=== PATIENT | female | born 1955 ===

== ENCOUNTER 2021-06-12 21:53 | Inpatient (IN) ==
[2021-06-12 23:08] LABS: Venous Bicarbonate HCO3 34.6 mmol/L (24-28)
[2021-06-12 23:18] LABS: Hematocrit 23 % (35-47); Hemoglobin 6.7 g/dL (12.0-16.0); Mean Corpuscular HGB Conc 29 g/dL (31-36); Mean Corpuscular Hemoglobin 19 pg (27-31); Mean Corpuscular Volume 66 fL (80-97); Red Blood Count 3.45 10^6 /uL (3.70-4.87); Red Cell Distribution Width 22 % (10-15); White Blood Count 3.4 10^3/uL (3.5-10.8)
[2021-06-12 23:19] LABS: ABS Lymphocytes 0.7 10^3/ul (1.0-4.8); ABS Monocytes 0.4 10^3/ul (0-0.8); ABS Neutrophils 2.2 10^3/ul (1.5-7.7); Eosinophil % 1.1 %; Lymphocyte % 21.1 %; Nucleated Red Blood Cells % 0.1
[2021-06-12 23:33] LABS: High Sens Troponin Baseline 8 pg/mL (<15)
[2021-06-12 23:37] LABS: ALT 9 U/L (7-52); AST 17 U/L (13-39); Acetaminophen < 15 mcg/mL; Albumin 3.2 g/dL (3.2-5.2); Albumin/Globulin Ratio 0.9 (1-3); Alcohol, S < 13 mg/dL (<13); Alkaline Phosphatase 90 U/L (35-149); Anion Gap 6 mmol/L (2-11); Blood Urea Nitrogen 19 mg/dL (6-24); CO2 Carbon Dioxide 37 mmol/L (22-32); Calcium 8.7 mg/dL (8.6-10.3); Chloride 98 mmol/L (101-111); Globulin 3.7 g/dL (2-4); Glucose 83 mg/dL (70-100); Magnesium 1.8 mg/dL (1.9-2.7); Sodium 141 mmol/L (135-145); Total Protein 6.9 g/dL (6.4-8.9); eGFR CKD-EPI 103.5 (>60)
[2021-06-12 23:38] LABS: Anisocytosis 1+; Hypochromasia 1+; Mean Platelet Volume 10.1 fL (7.4-10.4); Platelet Count 105 10^3/uL (150-450)
[2021-06-12 23:39] LABS: Stomatocytes 1+
[2021-06-12 23:40] LABS: Platelet Morphology Large
[2021-06-13 05:40] LABS: Urine Appearance Cloudy; Urine Bilirubin Negative (Negative); Urine Blood 1+ (Negative); Urine Color Yellow; Urine Glucose Negative (Negative); Urine Ketones Negative (Negative); Urine Nitrite Positive (Negative); Urine Protein 1+(30 mg/dL) (Negative); Urine Specific Gravity 1.017 (1.002-1.030); Urine Urobilinogen Positive (Negative)
[2021-06-13 05:44] LABS: Urine Bacteria 1+ (Absent); Urine Red Blood Cell 2+(6-10/hpf) (Absent); Urine Squamous Epithelial Cell Present (Absent); Urine White Blood Cell 2+(11-20/hpf) (Absent)
[2021-06-13 07:52] LABS: ABS Lymphocytes 0.7 10^3/ul (1.0-4.8); ABS Monocytes 0.5 10^3/ul (0-0.8); Eosinophil % 1.1 %; Hematocrit 24 % (35-47); Lymphocyte % 22.4 %; Mean Corpuscular HGB Conc 30 g/dL (31-36); Mean Corpuscular Hemoglobin 20 pg (27-31); Mean Corpuscular Volume 68 fL (80-97); Nucleated Red Blood Cells % 0.2; Red Blood Count 3.47 10^6 /uL (3.70-4.87); Red Cell Distribution Width 23 % (10-15); White Blood Count 3.2 10^3/uL (3.5-10.8)
[2021-06-13 08:18] LABS: Albumin 3.1 g/dL (3.2-5.2); Albumin/Globulin Ratio 0.9 (1-3); Calcium 8.6 mg/dL (8.6-10.3); Globulin 3.6 g/dL (2-4); HDL Cholesterol 33.4 mg/dL; Potassium 3.9 mmol/L (3.5-5.0); Total Protein 6.7 g/dL (6.4-8.9)
[2021-06-13 08:20] LABS: Mean Platelet Volume 10.7 fL (7.4-10.4); Platelet Count 111 10^3/uL (150-450)
[2021-06-13 08:28] LABS: TSH Ultra Thyroid Stim Horm 2.32 mcIU/mL (0.34-5.60)
[2021-06-13 08:36] LABS: Ferritin 6.6 ng/mL (11-307)
[2021-06-13] MEDS: cefTRIAXone 1 gm/50 mL D5W 1 GM/50 ML BAG IV SCH (08:37)
[2021-06-13 08:39] LABS: Folate 8.08 ng/mL (5.90-24.80)
[2021-06-13 12:05] LABS: Hematocrit 23 % (35-47); Hemoglobin 6.9 g/dL (12.0-16.0)
[2021-06-13] MEDS ORDERED: Cyanocobalamin INJ 1,000 MCG/ML VIAL 1 ML VIAL IM ONE (12:57)
[2021-06-14 06:10] LABS: Hematocrit 22 % (35-47); Hemoglobin 6.6 g/dL (12.0-16.0); Mean Corpuscular HGB Conc 30 g/dL (31-36); Mean Corpuscular Hemoglobin 20 pg (27-31); Mean Corpuscular Volume 68 fL (80-97); Red Blood Count 3.28 10^6 /uL (3.70-4.87); Red Cell Distribution Width 23 % (10-15); White Blood Count 3.1 10^3/uL (3.5-10.8)
[2021-06-14 06:29] LABS: ABS Lymphocytes 0.8 10^3/ul (1.0-4.8); ABS Monocytes 0.5 10^3/ul (0-0.8); ABS Neutrophils 1.7 10^3/ul (1.5-7.7); Eosinophil % 1.5 %; Lymphocyte % 25.5 %; Mean Platelet Volume 10.7 fL (7.4-10.4); Nucleated Red Blood Cells % 0.1
[2021-06-14 06:36] LABS: Albumin/Globulin Ratio 0.9 (1-3); Calcium 8.5 mg/dL (8.6-10.3); Globulin 3.2 g/dL (2-4); Potassium 4.4 mmol/L (3.5-5.0); Total Bilirubin 0.7 mg/dL (0.2-1.0); Total Protein 6.2 g/dL (6.4-8.9); eGFR CKD-EPI 101.7 (>60)
[2021-06-14 06:40] LABS: Platelet Count 150 10^3/uL (150-450)
[2021-06-14 06:41] LABS: Microcytosis 3+
[2021-06-14 06:42] LABS: Anisocytosis 2+; Hypochromasia 2+
[2021-06-14 06:43] LABS: Polychromasia 1+
[2021-06-14 06:45] LABS: Large Platelets Present
[2021-06-14] MEDS: cefTRIAXone 1 gm/50 mL D5W 1 GM/50 ML BAG IV SCH (09:29)
[2021-06-14 14:27] LABS: Intrinsic Factor Blocking AB Indeterminate (Negative)
[2021-06-15 05:56] LABS: Hematocrit 24 % (35-47); Hemoglobin 7.3 g/dL (12.0-16.0); Mean Corpuscular HGB Conc 30 g/dL (31-36); Mean Corpuscular Hemoglobin 21 pg (27-31); Mean Corpuscular Volume 69 fL (80-97); Red Blood Count 3.55 10^6 /uL (3.70-4.87); Red Cell Distribution Width 24 % (10-15); White Blood Count 4.6 10^3/uL (3.5-10.8)
[2021-06-15 05:57] LABS: ABS Basophils 0.1 10^3/ul (0-0.2); ABS Eosinophils 0.1 10^3/ul (0-0.6); ABS Lymphocytes 0.9 10^3/ul (1.0-4.8); ABS Monocytes 0.9 10^3/ul (0-0.8); ABS Neutrophils 2.6 10^3/ul (1.5-7.7); Eosinophil % 1.3 %; Nucleated Red Blood Cells % 0.2
[2021-06-15 06:18] LABS: Albumin 3.1 g/dL (3.2-5.2); Calcium 8.8 mg/dL (8.6-10.3); Potassium 4.3 mmol/L (3.5-5.0)
[2021-06-15 06:24] LABS: Albumin/Globulin Ratio 0.9 (1-3); Globulin 3.5 g/dL (2-4); Total Protein 6.6 g/dL (6.4-8.9); eGFR CKD-EPI 96.3 (>60)
[2021-06-15 07:05] LABS: Mean Platelet Volume 9.5 fL (7.4-10.4); Platelet Count 114 10^3/uL (150-450)
[2021-06-15 07:06] LABS: Anisocytosis 2+
[2021-06-15 07:08] LABS: Polychromasia 1+
[2021-06-15 07:09] LABS: Platelet Morphology Large
[2021-06-15] MEDS: cefTRIAXone 1 gm/50 mL D5W 1 GM/50 ML BAG IV SCH (11:21)
[2021-06-15] MEDS ORDERED: Saline NASAL SPRAY 0.65% BTL BOTH NARES PRN (17:41)
[2021-06-15] MEDS: Fluticasone NASAL SPRAY 50MCG 16 gm SPRAY BTL BOTH NARES SCH (20:12)
[2021-06-16] MEDS ORDERED: Petroleum Jelly 1.75 Oz (small jar) TOPICAL PRN (07:50)
[2021-06-16 08:05] LABS: Hematocrit 25 % (35-47); Hemoglobin 7.6 g/dL (12.0-16.0); Mean Corpuscular HGB Conc 30 g/dL (31-36); Mean Corpuscular Hemoglobin 21 pg (27-31); Mean Corpuscular Volume 70 fL (80-97); Red Cell Distribution Width 24 % (10-15); White Blood Count 4.2 10^3/uL (3.5-10.8)
[2021-06-16] MEDS: Fluticasone NASAL SPRAY 50MCG 16 gm SPRAY BTL BOTH NARES SCH (08:19)
[2021-06-16 08:45] LABS: Albumin 3.1 g/dL (3.2-5.2); Albumin/Globulin Ratio 0.9 (1-3); Calcium 8.7 mg/dL (8.6-10.3); Globulin 3.5 g/dL (2-4); Total Bilirubin 0.7 mg/dL (0.2-1.0); Total Protein 6.6 g/dL (6.4-8.9); eGFR CKD-EPI 86.9 (>60)
[2021-06-16 09:25] LABS: ABS Basophils 0.1 10^3/ul (0-0.2); ABS Eosinophils 0.1 10^3/ul (0-0.6); ABS Lymphocytes 0.9 10^3/ul (1.0-4.8); ABS Monocytes 0.7 10^3/ul (0-0.8); ABS Neutrophils 2.5 10^3/ul (1.5-7.7); Eosinophil % 2.2 %; Lymphocyte % 20.7 %; Mean Platelet Volume 9.7 fL (7.4-10.4); Nucleated Red Blood Cells % 0.1; Platelet Count 108 10^3/uL (150-450)
[2021-06-16 10:51] VITALS: BP 103/49
== END 2021-06-16 10:59 | disposition swing bed (61) | DRG 760 ==
LOC: ED 21:53 → SUATTDRO 06-13 01:21 → EDHOLD 06-13 01:21 → MEDTELE 06-13 09:56
PROVIDERS: ADMIT Internal Medicine; ATTEND Student in an Organized Health Care Education/Training Program

== ENCOUNTER 2023-11-01 22:30 | Inpatient (IN) ==
[2023-11-01 22:54] LABS: Venous Bicarbonate HCO3 29.1 mmol/L (24-28)
[2023-11-01 23:21] LABS: Hemoglobin 13.1 g/dL (11.5-14.3); Mean Corpuscular Hemoglobin 27.7 pg (27-33); Mean Corpuscular Hgb Conc 31.9 g/dL (31-36); Mean Corpuscular Volume 86.8 fL (80-97); Red Blood Count 4.72 10^6/uL (3.63-4.92); Red Cell Distribution Width 16.2 % (12-17); White Blood Count 16.9 10^3/uL (3.8-11.8)
[2023-11-01] MEDS: methylPREDNISolone SOD SUCC 125 mg 2 ML VIAL IV ONE (23:46)
[2023-11-01] MEDS: cefTRIAXone 2 gm/50 mL D5W 2 GM/50 ML BAG IV SCH (23:46)
[2023-11-02] MEDS: Azithromycin 500 mg/250 ml NS 500 MG/250 ML BAG IVPB SCH (00:10)
[2023-11-02 00:14] LABS: Potassium 4.2 mmol/L (3.5-5.0)
[2023-11-02 00:15] LABS: Albumin 3.4 g/dL (3.2-5.2); Albumin/Globulin Ratio 0.9 (1-3); Calcium 8.4 mg/dL (8.6-10.3); Creatinine, Serum 2.12 mg/dL (0.51-0.95); Globulin 3.7 g/dL (2-4); Total Bilirubin 3.4 mg/dL (0.2-1.0); Total Protein 7.1 g/dL (6.4-8.9); eGFR CKD-EPI 24.9 (>60)
[2023-11-02] MEDS: Lactated Ringers 1000 ml BAG 1,000 ML IV ONE ×2 (00:18→06:30)
[2023-11-02 00:26] LABS: High Sensitivity Troponin 1 Hr 1081 pg/mL (<15)
[2023-11-02 00:43] LABS: Mean Platelet Volume 13.3 fL (7.5-11.2); Platelet Count 49 10^3/uL (150-450)
[2023-11-02] MEDS ORDERED: KETAMINE HCL 10 MG/ML 20 ml VIAL (200 MG) ONE (01:12)
[2023-11-02] MEDS ORDERED: Rocuronium 50 mg VIAL 10 mg/ml 5 ml VIAL (50 mg) ONE (01:12)
[2023-11-02] MEDS ORDERED: Benzocaine/Butamben/Tetracain (CETACAINE - SINGLE USE) 5 gm TOPICAL ONE (01:12)
[2023-11-02 01:13] LABS: PO2 Arterial 90 mmHg (80-100)
[2023-11-02 01:14] LABS: PCO2 Arterial 92 mmHg (35-45)
[2023-11-02] MEDS: Norepinephrine 4 MG/250mL D5W 4,000 MCG/250 ML BAG IV SCH (01:15)
[2023-11-02] MEDS: Propofol 10 mg/ml 100 ML BTL 1,000 MG/100 ML BTL IV SCH (01:30)
[2023-11-02 01:52] LABS: ABS Lymphocytes 0.3 10^3/uL (1.0-4.8); ABS Monocytes 1.4 10^3/uL (0.0-0.9); ABS Neutrophils 15.2 10^3/uL (1.5-7.6); ABS Nucleated RBC 0.02 10^3/ul; Lymphocyte % 1.9 %; Nucleated Red Blood Cells % 0.1 %/100WBC (0.0-0.8)
[2023-11-02 02:02] LABS: C Reactive Protein 187.14 mg/L (<8.01); Magnesium 1.6 mg/dL (1.9-2.7)
[2023-11-02] MEDS: fentaNYL 100 mcg/2 ml 50 MCG/ML VIAL IV SLOW PU PRN (02:04)
[2023-11-02] MEDS: Sulfur Hexaflouride MICROSPHR 25 MG VIAL IV ONE (02:56)
[2023-11-02] MEDS: Heparin 5000 UNITS/ML 1 mL VIAL IV SCH (03:05)
[2023-11-02] MEDS: Heparin 5000 UNITS/ML 1 mL VIAL ONE (03:07)
[2023-11-02] MEDS: Heparin DRIP 25,000 UNITS BAG 25,000 UNITS/250 ML BAG IV ONE (03:08)
[2023-11-02] MEDS: Propofol 10 mg/ml 100 ML BTL 1,000 MG/100 ML BTL ONE (03:08)
[2023-11-02] MEDS: Heparin DRIP 25,000 UNITS BAG 25,000 UNITS/250 ML BAG IV SCH (03:10)
[2023-11-02] MEDS: Rocuronium 50 mg VIAL 10 mg/ml 5 ml VIAL (50 mg) ONE ×3 (03:40)
[2023-11-02] MEDS: Norepinephrine 4 MG/250mL D5W 4,000 MCG/250 ML BAG IV ONE (03:55)
[2023-11-02] MEDS: fentaNYL 100 mcg/2 ml 50 MCG/ML VIAL ONE (03:56)
[2023-11-02 03:57] LABS: Resp Rate 22
[2023-11-02 04:00] LABS: PCO2 Arterial 46 mmHg (35-45); PO2 Arterial 106 mmHg (80-100)
[2023-11-02] MEDS: Phenylephrine 40 mcg/mL 10mL (400mcg) SYRINGE ONE ×2 (04:01→06:00)
[2023-11-02 04:23] LABS: Hematocrit 41.6 % (35-45); Hemoglobin 13.3 g/dL (11.5-14.3); Mean Corpuscular Hemoglobin 27.6 pg (27-33); Mean Corpuscular Volume 86.2 fL (80-97); Red Blood Count 4.82 10^6/uL (3.63-4.92); Red Cell Distribution Width 16.7 % (12-17); White Blood Count 17.6 10^3/uL (3.8-11.8)
[2023-11-02 04:27] LABS: High Sensitivity Troponin 3 Hr 1569 pg/mL (<15)
[2023-11-02] MEDS: Furosemide 40 mg/4 ml IV VIAL IV SLOW PU ONE (05:05)
[2023-11-02 05:12] LABS: HDL Cholesterol 32.2 mg/dL
[2023-11-02 05:17] LABS: ABS Lymphocytes 0.5 10^3/uL (1.0-4.8); ABS Monocytes 1.1 10^3/uL (0.0-0.9); ABS Neutrophils 15.8 10^3/uL (1.5-7.6); ABS Nucleated RBC 0.01 10^3/ul; Lymphocyte % 2.7 %; Nucleated Red Blood Cells % 0.1 %/100WBC (0.0-0.8); Platelet Count 56 10^3/uL (150-450)
[2023-11-02] MEDS: Chlorhexidine MOUTHWASH 0.12% 15 ML UDC TOPICAL SCH (05:26)
[2023-11-02 05:39] LABS: TSH Ultra Thyroid Stim Horm 0.67 mcIU/mL (0.34-5.60)
[2023-11-02 05:39] LABS: Calcium 8.2 mg/dL (8.6-10.3); Creatinine, Serum 2.17 mg/dL (0.51-0.95); Magnesium 1.6 mg/dL (1.9-2.7); eGFR CKD-EPI 24.2 (>60)
[2023-11-02 05:41] LABS: Free T4 1.09 ng/dL (0.61-1.12)
[2023-11-02 05:53] LABS: Potassium 4.5 mmol/L (3.5-5.0)
[2023-11-02] MEDS: Magnesium Sulfate 2 gm BAG 2 GM/50 ML BAG IVPB ONE (06:29)
[2023-11-02] MEDS: Levothyroxine 100 MCG/5 ML VIAL IV SCH (08:01)
[2023-11-02] MEDS: DOXYcycline 100 MG in NS 0.9% 250 ml 250 ML IVPB SCH (08:01)
[2023-11-02] MEDS: Pantoprazole VIAL 40 MG VIAL IV SCH (08:03)
[2023-11-02] MEDS: Albumin Human 25% 25 GM/100 ML BTL IV ONE (09:15)
[2023-11-02] MEDS ORDERED: Sulfur Hexaflouride MICROSPHR 25 MG VIAL ONE (09:48)
[2023-11-02] MEDS: Furosemide 40 mg/4 ml IV VIAL IV ONE (11:55)
[2023-11-02] MEDS: Albumin Human 5% 12.5 GM/250 ML BTL IV ONE (17:06)
[2023-11-03] MEDS: Heparin 5000 UNITS/ML 1 mL VIAL SUBCUT SCH (06:17)
[2023-11-03 06:30] LABS: Urine Appearance Turbid; Urine Bilirubin Negative (Negative); Urine Blood 3+ (Negative); Urine Color Yellow; Urine Glucose Negative (Negative); Urine Ketones Negative (Negative); Urine Nitrite Negative (Negative); Urine Protein 2+ (>=100 mg/dL) (Negative); Urine Specific Gravity 1.012 (1.002-1.030); Urine Urobilinogen Negative (Negative)
[2023-11-03 06:59] LABS: Albumin 2.9 g/dL (3.2-5.2); Albumin/Globulin Ratio 0.9 (1-3); Creatinine, Serum 2.99 mg/dL (0.51-0.95); Globulin 3.1 g/dL (2-4); Potassium 4.4 mmol/L (3.5-5.0); Total Bilirubin 1.7 mg/dL (0.2-1.0); eGFR CKD-EPI 16.5 (>60)
[2023-11-03 07:01] LABS: Urine Bacteria 1+ /HPF (Absent); Urine Red Blood Cell 2+(6-10/hpf) /HPF (0-Trace); Urine Renal Epithelial Cells Present /HPF (Absent); Urine Squamous Epithelial Cell Present /HPF (Absent); Urine White Blood Cell 3+(>20/hpf) /HPF (0-Trace)
[2023-11-03 07:21] LABS: Hematocrit 39.4 % (35-45); Hemoglobin 13.1 g/dL (11.5-14.3); Mean Corpuscular Hemoglobin 27.9 pg (27-33); Mean Corpuscular Hgb Conc 33.4 g/dL (31-36); Mean Corpuscular Volume 83.6 fL (80-97); Red Blood Count 4.71 10^6/uL (3.63-4.92); White Blood Count 17.3 10^3/uL (3.8-11.8)
[2023-11-03 09:24] LABS: ABS Basophils 0.1 10^3/uL (0.0-0.1); ABS Eosinophils 0.1 10^3/uL (0.0-0.5); ABS Lymphocytes 1.2 10^3/uL (1.0-4.8); ABS Monocytes 2.1 10^3/uL (0.0-0.9); ABS Neutrophils 13.9 10^3/uL (1.5-7.6); ABS Nucleated RBC 0.01 10^3/ul; Eosinophil % 0.4 %; Lymphocyte % 6.8 %; Nucleated Red Blood Cells % 0.1 %/100WBC (0.0-0.8); Platelet Count 66 10^3/uL (150-450)
[2023-11-03] MEDS ORDERED: Vancomycin per Pharmacy 1 EA NOTE FOLLOW UP SCH (12:00)
[2023-11-03] MEDS: Vancomycin 2,000 MG in NS 0.9% 500 ml BAG 500 ML IVPB ONE (12:34)
[2023-11-03 13:26] LABS: Urine Osmo 289 mOsm/kg (150-1150)
[2023-11-03 22:56] LABS: PCO2 Arterial 36 mmHg (35-45); PO2 Arterial 73 mmHg (80-100)
[2023-11-04] MEDS: Albumin Human 5% 25 GM/500 ML BTL IV ONE (00:30)
[2023-11-04 01:48] LABS: Calcium 8.1 mg/dL (8.6-10.3); Creatinine, Serum 3.24 mg/dL (0.51-0.95); Potassium 4.1 mmol/L (3.5-5.0)
[2023-11-04 05:43] LABS: Albumin 2.8 g/dL (3.2-5.2); Calcium 7.9 mg/dL (8.6-10.3); Creatinine, Serum 3.26 mg/dL (0.51-0.95); Globulin 2.8 g/dL (2-4); Potassium 4.2 mmol/L (3.5-5.0); Total Bilirubin 1.4 mg/dL (0.2-1.0); Total Protein 5.6 g/dL (6.4-8.9); Vancomycin Random 11.8 mcg/mL; eGFR CKD-EPI 14.9 (>60)
[2023-11-04 07:05] LABS: ABS Basophils 0.1 10^3/uL (0.0-0.1); ABS Eosinophils 0.1 10^3/uL (0.0-0.5); ABS Lymphocytes 1.2 10^3/uL (1.0-4.8); ABS Monocytes 1.6 10^3/uL (0.0-0.9); ABS Neutrophils 10.1 10^3/uL (1.5-7.6); Eosinophil % 0.5 %; Hemoglobin 12.5 g/dL (11.5-14.3); Lymphocyte % 8.9 %; Mean Corpuscular Hemoglobin 27.7 pg (27-33); Mean Corpuscular Hgb Conc 32.9 g/dL (31-36); Mean Corpuscular Volume 84.1 fL (80-97); Platelet Count 68 10^3/uL (150-450); Red Blood Count 4.52 10^6/uL (3.63-4.92); Red Cell Distribution Width 16.8 % (12-17)
[2023-11-04] MEDS: Vancomycin Random Level NOTE FOLLOW UP ONE (08:37)
[2023-11-04] MEDS: Vancomycin 2,000 MG in NS 0.9% 500 ml BAG 500 ML IVPB ONE (09:37)
[2023-11-05 05:23] LABS: ABS Basophils 0.1 10^3/uL (0.0-0.1); ABS Eosinophils 0.1 10^3/uL (0.0-0.5); ABS Lymphocytes 1.5 10^3/uL (1.0-4.8); ABS Monocytes 1.6 10^3/uL (0.0-0.9); ABS Neutrophils 6.5 10^3/uL (1.5-7.6); ABS Nucleated RBC 0.01 10^3/ul; Eosinophil % 1.4 %; Hemoglobin 12.7 g/dL (11.5-14.3); Mean Corpuscular Hemoglobin 27.3 pg (27-33); Mean Corpuscular Hgb Conc 32.5 g/dL (31-36); Mean Corpuscular Volume 84.2 fL (80-97); Mean Platelet Volume 12.4 fL (7.5-11.2); Nucleated Red Blood Cells % 0.2 %/100WBC (0.0-0.8); Platelet Count 71 10^3/uL (150-450); Red Blood Count 4.63 10^6/uL (3.63-4.92); Red Cell Distribution Width 16.6 % (12-17); White Blood Count 9.8 10^3/uL (3.8-11.8)
[2023-11-05 06:47] LABS: Albumin 2.7 g/dL (3.2-5.2); Albumin/Globulin Ratio 0.9 (1-3); Calcium 7.7 mg/dL (8.6-10.3); Creatinine, Serum 3.57 mg/dL (0.51-0.95); Potassium 3.9 mmol/L (3.5-5.0); Total Bilirubin 1.1 mg/dL (0.2-1.0); Total Protein 5.7 g/dL (6.4-8.9); eGFR CKD-EPI 13.3 (>60)
[2023-11-05] MEDS: Vancomycin Random Level NOTE FOLLOW UP ONE (08:41)
[2023-11-05] MEDS: Senna TAB 8.6 mg TAB NG TUBE SCH (09:58)
[2023-11-05] MEDS: Polyethylene Glycol 3350 17 GM PACKET NG TUBE SCH (09:58)
[2023-11-05 10:28] LABS: Urine Creatinine Concentration 83.78 mg/dL (20.00-320.00)
[2023-11-05 14:29] LABS: Anaplasma phagocytophilum Negative (Negative); B. miyamotoi PCR, B Negative (Negative); Babesia divergens/MO-1 Negative (Negative); Babesia ducani Negative (Negative); Ehrlichia chaffeensis Negative (Negative); Ehrlichia ewingii/canis Negative (Negative); Ehrlichia muris eauclairensis Negative (Negative)
[2023-11-05] MEDS ORDERED: Nicotine GUM 4MG FRUIT FLAVOR PO PRN (17:52)
[2023-11-05] MEDS ORDERED: Nicotine PATCH 21 MG/24 HR PATCH TRANSDERM SCH (18:00)
[2023-11-05 20:20] LABS: IgG Immunoblot Negative (Negative); IgM Immunoblot Negative (Negative)
[2023-11-05] MEDS: Acetylcysteine ORAL SOL 200 mg/ml 30 ml VIAL ONE (20:52)
[2023-11-06 05:57] LABS: ABS Basophils 0.1 10^3/uL (0.0-0.1); ABS Eosinophils 0.2 10^3/uL (0.0-0.5); ABS Lymphocytes 1.2 10^3/uL (1.0-4.8); ABS Monocytes 2.2 10^3/uL (0.0-0.9); ABS Neutrophils 6.8 10^3/uL (1.5-7.6); ABS Nucleated RBC 0.01 10^3/ul; Eosinophil % 1.6 %; Giant Platelets Present; Hematocrit 39.2 % (35-45); Hemoglobin 12.8 g/dL (11.5-14.3); Lymphocyte % 11.7 %; Mean Corpuscular Hemoglobin 27.6 pg (27-33); Mean Corpuscular Hgb Conc 32.7 g/dL (31-36); Mean Corpuscular Volume 84.4 fL (80-97); Mean Platelet Volume 12.8 fL (7.5-11.2); Nucleated Red Blood Cells % 0.1 %/100WBC (0.0-0.8); Platelet Count 92 10^3/uL (150-450); Red Blood Count 4.64 10^6/uL (3.63-4.92); White Blood Count 10.5 10^3/uL (3.8-11.8)
[2023-11-06 06:13] LABS: Phosphorus 4.7 mg/dL (2.5-5.0)
[2023-11-06 06:16] LABS: Calcium 7.8 mg/dL (8.6-10.3); Creatinine, Serum 3.38 mg/dL (0.51-0.95); Magnesium 1.9 mg/dL (1.9-2.7); Potassium 3.8 mmol/L (3.5-5.0); Vancomycin Random 15.9 mcg/mL; eGFR CKD-EPI 14.2 (>60)
[2023-11-06] MEDS: Vancomycin Random Level NOTE FOLLOW UP ONE (07:41)
[2023-11-06] MEDS: Furosemide 40 mg/4 ml IV VIAL IV SLOW PU ONE (09:54)
[2023-11-06] MEDS: Furosemide 40 mg/4 ml IV VIAL IV ONE (15:53)
[2023-11-07 04:23] LABS: Hematocrit 37.8 % (35-45); Hemoglobin 12.4 g/dL (11.5-14.3); Mean Corpuscular Hemoglobin 27.5 pg (27-33); Mean Corpuscular Hgb Conc 32.9 g/dL (31-36); Mean Corpuscular Volume 83.5 fL (80-97); Red Blood Count 4.53 10^6/uL (3.63-4.92); Red Cell Distribution Width 16.9 % (12-17); White Blood Count 8.7 10^3/uL (3.8-11.8)
[2023-11-07 04:52] LABS: Calcium 8.5 mg/dL (8.6-10.3); Creatinine, Serum 3.6 mg/dL (0.51-0.95); Magnesium 1.9 mg/dL (1.9-2.7); Potassium 3.8 mmol/L (3.5-5.0); eGFR CKD-EPI 13.2 (>60)
[2023-11-07 05:02] LABS: ABS Eosinophils 0.1 10^3/uL (0.0-0.5); ABS Lymphocytes 0.9 10^3/uL (1.0-4.8); ABS Monocytes 1.5 10^3/uL (0.0-0.9); ABS Neutrophils 6.2 10^3/uL (1.5-7.6); ABS Nucleated RBC 0.01 10^3/ul; Giant Platelets Present; Lymphocyte % 10.6 %; Mean Platelet Volume 11.8 fL (7.5-11.2); Nucleated Red Blood Cells % 0.1 %/100WBC (0.0-0.8); Platelet Count 99 10^3/uL (150-450)
[2023-11-07 07:51] LABS: Albumin 2.7 g/dL (3.2-5.2); Albumin/Globulin Ratio 0.8 (1-3); Direct Bilirubin 0.5 mg/dL (0.03-0.18); Globulin 3.2 g/dL (2-4); Indirect Bilirubin 0.4 mg/dL (0.3-1.0); Total Bilirubin 0.9 mg/dL (0.2-1.0); Total Protein 5.9 g/dL (6.4-8.9)
[2023-11-07 21:13] LABS: Malaria Detection PCR Negative (Negative)
[2023-11-08 05:02] LABS: Hematocrit 37.6 % (35-45); Hemoglobin 12.3 g/dL (11.5-14.3); Mean Corpuscular Hemoglobin 27.3 pg (27-33); Mean Corpuscular Hgb Conc 32.6 g/dL (31-36); Mean Corpuscular Volume 83.7 fL (80-97); Red Blood Count 4.49 10^6/uL (3.63-4.92); Red Cell Distribution Width 16.6 % (12-17); White Blood Count 7.5 10^3/uL (3.8-11.8)
[2023-11-08 05:33] LABS: ABS Basophils 0.1 10^3/uL (0.0-0.1); ABS Eosinophils 0.1 10^3/uL (0.0-0.5); ABS Lymphocytes 0.9 10^3/uL (1.0-4.8); ABS Monocytes 1.3 10^3/uL (0.0-0.9); ABS Neutrophils 5.1 10^3/uL (1.5-7.6); ABS Nucleated RBC 0.01 10^3/ul; Eosinophil % 1.5 %; Lymphocyte % 12.4 %; Mean Platelet Volume 11.8 fL (7.5-11.2); Nucleated Red Blood Cells % 0.1 %/100WBC (0.0-0.8); Platelet Count 125 10^3/uL (150-450)
[2023-11-08 05:52] LABS: Calcium 8.3 mg/dL (8.6-10.3); Creatinine, Serum 3.16 mg/dL (0.51-0.95); Magnesium 1.7 mg/dL (1.9-2.7); Potassium 3.6 mmol/L (3.5-5.0); eGFR CKD-EPI 15.4 (>60)
[2023-11-08] MEDS: Acetaminophen IV 1 GM/100ML 1,000 MG/100 ML BAG IV PRN (08:43)
[2023-11-08] MEDS: Magnesium Sulfate 2 gm BAG 2 GM/50 ML BAG IVPB ONE (08:43)
[2023-11-08 18:45] LABS: Magnesium 1.9 mg/dL (1.9-2.7); Potassium 3.7 mmol/L (3.5-5.0)
[2023-11-09 06:05] LABS: Hematocrit 37.3 % (35-45); Hemoglobin 12.1 g/dL (11.5-14.3); Mean Corpuscular Hemoglobin 27.6 pg (27-33); Mean Corpuscular Hgb Conc 32.6 g/dL (31-36); Mean Corpuscular Volume 84.8 fL (80-97); Red Cell Distribution Width 16.9 % (12-17); White Blood Count 5.9 10^3/uL (3.8-11.8)
[2023-11-09 06:25] LABS: Calcium 8.5 mg/dL (8.6-10.3); Creatinine, Serum 2.54 mg/dL (0.51-0.95); Magnesium 1.9 mg/dL (1.9-2.7); Potassium 3.9 mmol/L (3.5-5.0); eGFR CKD-EPI 20.1 (>60)
[2023-11-09 07:16] LABS: ABS Eosinophils 0.1 10^3/uL (0.0-0.5); ABS Lymphocytes 0.8 10^3/uL (1.0-4.8); ABS Monocytes 0.9 10^3/uL (0.0-0.9); ABS Neutrophils 4.1 10^3/uL (1.5-7.6); Eosinophil % 2.1 %; Giant Platelets Present; Large Platelets Present; Lymphocyte % 12.9 %; Nucleated Red Blood Cells % 0.1 %/100WBC (0.0-0.8); Platelet Count 118 10^3/uL (150-450)
[2023-11-10 08:57] LABS: ABS Basophils 0.1 10^3/uL (0.0-0.1); ABS Eosinophils 0.1 10^3/uL (0.0-0.5); ABS Lymphocytes 0.6 10^3/uL (1.0-4.8); ABS Neutrophils 4.7 10^3/uL (1.5-7.6); Eosinophil % 0.9 %; Giant Platelets Present; Hematocrit 40.2 % (35-45); Hemoglobin 12.7 g/dL (11.5-14.3); Lymphocyte % 9.8 %; Mean Corpuscular Hemoglobin 27.2 pg (27-33); Mean Corpuscular Hgb Conc 31.5 g/dL (31-36); Mean Corpuscular Volume 86.3 fL (80-97); Mean Platelet Volume 11.6 fL (7.5-11.2); Nucleated Red Blood Cells % 0.1 %/100WBC (0.0-0.8); Platelet Count 134 10^3/uL (150-450); Red Blood Count 4.65 10^6/uL (3.63-4.92); Red Cell Distribution Width 17.2 % (12-17); White Blood Count 6.4 10^3/uL (3.8-11.8)
[2023-11-10 09:20] LABS: Calcium 8.8 mg/dL (8.6-10.3); Creatinine, Serum 2.37 mg/dL (0.51-0.95); Magnesium 1.9 mg/dL (1.9-2.7); Potassium 4.2 mmol/L (3.5-5.0); eGFR CKD-EPI 21.8 (>60)
[2023-11-10] MEDS: Furosemide 20 mg/2 ml IV VIAL IV SLOW PU ONE (13:26)
[2023-11-10] MEDS: Dextrose 50% Syringe 50 ml 25 GM/50 ML SYRINGE IV PUSH PRN (15:15)
[2023-11-10] MEDS ORDERED: Vancomycin 1,000 MG in NS 0.9% 250 ml 250 ML IVPB ONE (16:46)
[2023-11-10] MEDS ORDERED: Vancomycin per Pharmacy 1 EA NOTE FOLLOW UP SCH (17:00)
[2023-11-10] MEDS ORDERED: Zosyn per Pharmacy NOTE FOLLOW UP SCH (17:00)
[2023-11-10 17:26] LABS: ABS Lymphocytes 0.7 10^3/uL (1.0-4.8); ABS Monocytes 0.9 10^3/uL (0.0-0.9); ABS Neutrophils 5.2 10^3/uL (1.5-7.6); ABS Nucleated RBC 0.01 10^3/ul; Eosinophil % 0.4 %; Giant Platelets Present; Hematocrit 42.4 % (35-45); Hemoglobin 12.9 g/dL (11.5-14.3); Lymphocyte % 9.9 %; Mean Corpuscular Hemoglobin 26.6 pg (27-33); Mean Corpuscular Hgb Conc 30.4 g/dL (31-36); Mean Corpuscular Volume 87.7 fL (80-97); Nucleated Red Blood Cells % 0.1 %/100WBC (0.0-0.8); Platelet Count 139 10^3/uL (150-450); Red Blood Count 4.84 10^6/uL (3.63-4.92); Red Cell Distribution Width 17.6 % (12-17); White Blood Count 6.8 10^3/uL (3.8-11.8)
[2023-11-10] MEDS: Norepinephrine 4 MG/250mL D5W 4,000 MCG/250 ML BAG IV SCH (17:45)
[2023-11-10 17:49] LABS: Albumin 2.9 g/dL (3.2-5.2); Albumin/Globulin Ratio 0.8 (1-3); Creatinine, Serum 2.34 mg/dL (0.51-0.95); Globulin 3.7 g/dL (2-4); Total Bilirubin 0.8 mg/dL (0.2-1.0); Total Protein 6.6 g/dL (6.4-8.9); eGFR CKD-EPI 22.1 (>60)
[2023-11-10] MEDS: Propofol 10 mg/ml 100 ML BTL 1,000 MG/100 ML BTL IV SCH (18:00)
[2023-11-10] MEDS: fentaNYL INFUSION 50 mcg/mL VL 2,500 MCG/50 ML VIAL IV SCH (18:43)
[2023-11-10] MEDS: Norepinephrine 4 MG/250mL D5W 4,000 MCG/250 ML BAG IV ONE (18:46)
[2023-11-10] MEDS: Succinylcholine 200 mg VIAL 20 mg/ml 10 ml VIAL (200 mg) ONE (18:48)
[2023-11-10] MEDS: Phenylephrine 40 mcg/mL 10mL (400mcg) SYRINGE IV PUSH PRN (18:48)
[2023-11-10] MEDS: Propofol 10 mg/ml 100 ML BTL 1,000 MG/100 ML BTL ONE (18:48)
[2023-11-10] MEDS: Phenylephrine 40 mcg/mL 10mL (400mcg) SYRINGE ONE (18:49)
[2023-11-10] MEDS: EPINEPHrine SYR 0.1MG/ML 10 ml SYRINGE IV ONE ×2 (18:52→19:43)
[2023-11-10] MEDS: fentaNYL 100 mcg/2 ml 50 MCG/ML VIAL IV SLOW PU PRN (19:00)
[2023-11-10] MEDS: Vancomycin 2,000 MG in NS 0.9% 500 ml BAG 500 ML IVPB ONE (19:09)
[2023-11-10] MEDS: Piperacillin/Tazobac 3.375 BAG 3.375 GM/100 ML BAG IV ONE (19:10)
[2023-11-10] MEDS: Dextrose 50% Syringe 50 ml 25 GM/50 ML SYRINGE ONE (19:43)
[2023-11-10] MEDS: fentaNYL 100 mcg/2 ml 50 MCG/ML VIAL ONE (19:43)
[2023-11-10] MEDS ORDERED: Heparin 5000 UNITS/ML 1 mL VIAL IV PRN (20:00)
[2023-11-10 20:09] LABS: PCO2 Arterial 52 mmHg (35-45); PO2 Arterial 86 mmHg (80-100)
[2023-11-10] MEDS: Heparin DRIP 25,000 UNITS BAG 25,000 UNITS/250 ML BAG IV SCH (20:40)
[2023-11-10] MEDS ORDERED: Enoxaparin 40 MG/0.4 ML SYR SUBCUT SCH (21:00)
[2023-11-10] MEDS ORDERED: Famotidine IV 10 MG/ML 2 ml VIAL (20 mg) IV SLOW PU SCH (21:00)
[2023-11-10] MEDS: Chlorhexidine MOUTHWASH 0.12% 15 ML UDC TOPICAL SCH (22:49)
[2023-11-10] MEDS: ZOSYN 3.375 GM Q12H per EXTENDED INFUSION IV SCH (22:49)
[2023-11-10 22:59] LABS: High Sensitivity Troponin 1 Hr 64 pg/mL (<15)
[2023-11-10] MEDS ORDERED: ZOSYN 3.375 GM Q8H per EXTENDED INFUSION IV SCH (23:00)
[2023-11-11] MEDS ORDERED: ZOSYN 3.375 GM Q8H per EXTENDED INFUSION IV SCH
[2023-11-11 00:41] LABS: PCO2 Arterial 44 mmHg (35-45); PO2 Arterial 84 mmHg (80-100)
[2023-11-11] MEDS ORDERED: Atropine 0.1 MG/ML 10 ml SYR (1 mg) IV PUSH PRN (03:00)
[2023-11-11 03:01] LABS: HDL Cholesterol 21.3 mg/dL
[2023-11-11] MEDS: Nystatin TOP POWDER 15 GM BTL TOPICAL SCH (04:13)
[2023-11-11] MEDS: Levothyroxine 100 MCG/5 ML VIAL IV SCH (05:55)
[2023-11-11 06:02] LABS: Hematocrit 41.7 % (35-45); Hemoglobin 13.3 g/dL (11.5-14.3); Mean Corpuscular Hemoglobin 27.2 pg (27-33); Mean Corpuscular Hgb Conc 31.9 g/dL (31-36); Mean Corpuscular Volume 85.2 fL (80-97); Platelet Count 171 10^3/uL (150-450); Red Cell Distribution Width 16.7 % (12-17); White Blood Count 11.3 10^3/uL (3.8-11.8)
[2023-11-11 06:07] LABS: ABS Basophils 0.1 10^3/uL (0.0-0.1); ABS Eosinophils 0.2 10^3/uL (0.0-0.5); ABS Lymphocytes 1.1 10^3/uL (1.0-4.8); ABS Monocytes 1.7 10^3/uL (0.0-0.9); ABS Neutrophils 8.3 10^3/uL (1.5-7.6); ABS Nucleated RBC 0.01 10^3/ul; Eosinophil % 1.7 %; Lymphocyte % 9.6 %; Nucleated Red Blood Cells % 0.1 %/100WBC (0.0-0.8)
[2023-11-11] MEDS: Acetaminophen IV 1 GM/100ML 1,000 MG/100 ML BAG IV PRN (06:23)
[2023-11-11 06:30] LABS: Creatinine, Serum 2.32 mg/dL (0.51-0.95); Vancomycin Random 18.7 mcg/mL; eGFR CKD-EPI 22.4 (>60)
[2023-11-11 06:31] LABS: Calcium 8.8 mg/dL (8.6-10.3); Creatinine, Serum 2.25 mg/dL (0.51-0.95); Magnesium 1.8 mg/dL (1.9-2.7); Phosphorus 4.4 mg/dL (2.5-5.0); Potassium 4.2 mmol/L (3.5-5.0); eGFR CKD-EPI 23.2 (>60)
[2023-11-11] MEDS: Vancomycin Random Level NOTE FOLLOW UP ONE (08:33)
[2023-11-11] MEDS: methylPREDNISolone SOD SUCC 40 mg/ml 1 ml VIAL IV SCH (09:13)
[2023-11-11] MEDS: Magnesium Sulfate 2 gm BAG 2 GM/50 ML BAG IVPB ONE (09:14)
[2023-11-11 10:34] LABS: Resp Rate 20
[2023-11-11 10:37] LABS: PCO2 Arterial 46 mmHg (35-45); PO2 Arterial 71 mmHg (80-100)
[2023-11-11] MEDS: Pantoprazole VIAL 40 MG VIAL IV SCH (10:38)
[2023-11-11] MEDS: Atropine 0.1 MG/ML 10 ml SYR (1 mg) ONE (11:48)
[2023-11-11] MEDS: EPINEPHrine SYR 0.1MG/ML 10 ml SYRINGE IV ONE (11:48)
[2023-11-11 15:23] LABS: Resp Rate 14
[2023-11-11 15:26] LABS: PCO2 Arterial 52 mmHg (35-45); PO2 Arterial 89 mmHg (80-100)
[2023-11-11] MEDS ORDERED: Vancomycin 1000 MG in NS 0.9% 250 ML IVPB ONE (16:15)
[2023-11-11] MEDS: KCL 20 MEQ/100 ML IVPREMIX 0 MEQ/0 ML BAG ONE (16:20)
[2023-11-11] MEDS: Magnesium Sulfate 2 gm BAG 0 GM/0 ML BAG ONE (16:20)
[2023-11-11 16:21] LABS: Calcium 8.8 mg/dL (8.6-10.3); Creatinine, Serum 2.34 mg/dL (0.51-0.95); Potassium 4.6 mmol/L (3.5-5.0); eGFR CKD-EPI 22.1 (>60)
[2023-11-11] MEDS: Vancomycin 1000 MG in NS 0.9% 250 ML IVPB ONE (17:36)
[2023-11-12 05:56] LABS: ABS Basophils 0.1 10^3/uL (0.0-0.1); ABS Lymphocytes 1.4 10^3/uL (1.0-4.8); ABS Monocytes 1.5 10^3/uL (0.0-0.9); ABS Neutrophils 6.5 10^3/uL (1.5-7.6); ABS Nucleated RBC 0.01 10^3/ul; Eosinophil % 0.3 %; Hematocrit 37.8 % (35-45); Hemoglobin 12.1 g/dL (11.5-14.3); Mean Corpuscular Hemoglobin 27.2 pg (27-33); Mean Corpuscular Hgb Conc 31.9 g/dL (31-36); Mean Corpuscular Volume 85.2 fL (80-97); Mean Platelet Volume 11.9 fL (7.5-11.2); Nucleated Red Blood Cells % 0.1 %/100WBC (0.0-0.8); Platelet Count 156 10^3/uL (150-450); Red Blood Count 4.44 10^6/uL (3.63-4.92); Red Cell Distribution Width 16.7 % (12-17); White Blood Count 9.6 10^3/uL (3.8-11.8)
[2023-11-12 06:32] LABS: Albumin 2.6 g/dL (3.2-5.2); Albumin/Globulin Ratio 0.8 (1-3); Calcium 8.8 mg/dL (8.6-10.3); Creatinine, Serum 2.56 mg/dL (0.51-0.95); Globulin 3.4 g/dL (2-4); Potassium 4.1 mmol/L (3.5-5.0); Total Bilirubin 0.8 mg/dL (0.2-1.0); Vancomycin Random 19.5 mcg/mL; eGFR CKD-EPI 19.9 (>60)
[2023-11-12] MEDS: Vancomycin Random Level NOTE FOLLOW UP ONE (07:21)
[2023-11-12] MEDS: Furosemide 40 mg/4 ml IV VIAL IV SLOW PU ONE (08:34)
[2023-11-12] MEDS: Furosemide 100 mg/10 ml IV 100 MG in NS 0.9% 100 ml BAG 90 ML IV SCH ×2 (10:46→16:25)
[2023-11-12] MEDS: Midazolam 2 mg/2 ml VIAL 1 mg/ml 2 ml VIAL (2 mg) IV SLOW PU ONE (14:52)
[2023-11-12] MEDS: EPINEPHrine SYR 0.1MG/ML 10 ml SYRINGE IV ONE (15:00)
[2023-11-12 15:12] LABS: Calcium 8.8 mg/dL (8.6-10.3); Creatinine, Serum 2.56 mg/dL (0.51-0.95); Potassium 4.2 mmol/L (3.5-5.0); eGFR CKD-EPI 19.9 (>60)
[2023-11-12] MEDS: Acetylcysteine INH SOL (RT) 200 MG/ML 4 ML VIAL INH ONE (15:26)
[2023-11-12] MEDS: Acetylcysteine INH SOL (RT) 200 MG/ML 4 ML VIAL INH SCH (15:27)
[2023-11-12] MEDS: Midazolam 10 mg/10 ml VIAL 1 mg/ml 10 ml VIAL (10 mg) ONE (15:31)
[2023-11-12] MEDS ORDERED: Acetylcysteine INHALATION SOL 200 MG/ML NEB.SOLN 10 ML INH SCH (16:00)
[2023-11-12] MEDS: ZOSYN 3.375 GM Q8H per EXTENDED INFUSION IV SCH (19:36)
[2023-11-13 00:33] LABS: ABS Basophils 0.1 10^3/uL (0.0-0.1); ABS Lymphocytes 0.9 10^3/uL (1.0-4.8); ABS Monocytes 0.9 10^3/uL (0.0-0.9); ABS Nucleated RBC 0.01 10^3/ul; Eosinophil % 0.1 %; Hematocrit 38.3 % (35-45); Hemoglobin 12.1 g/dL (11.5-14.3); Lymphocyte % 9.7 %; Mean Corpuscular Hemoglobin 26.8 pg (27-33); Mean Corpuscular Hgb Conc 31.5 g/dL (31-36); Mean Corpuscular Volume 85.1 fL (80-97); Mean Platelet Volume 11.5 fL (7.5-11.2); Nucleated Red Blood Cells % 0.1 %/100WBC (0.0-0.8); Platelet Count 173 10^3/uL (150-450); Red Cell Distribution Width 16.9 % (12-17); White Blood Count 8.8 10^3/uL (3.8-11.8)
[2023-11-13 01:15] LABS: Calcium 8.9 mg/dL (8.6-10.3); Creatinine, Serum 2.6 mg/dL (0.51-0.95); Potassium 4.2 mmol/L (3.5-5.0); eGFR CKD-EPI 19.5 (>60)
[2023-11-13 04:20] LABS: ABS Basophils 0.1 10^3/uL (0.0-0.1); ABS Nucleated RBC 0.01 10^3/ul; Eosinophil % 0.1 %; Hematocrit 37.1 % (35-45); Hemoglobin 11.9 g/dL (11.5-14.3); Lymphocyte % 12.5 %; Mean Corpuscular Hemoglobin 27.3 pg (27-33); Mean Corpuscular Hgb Conc 32.1 g/dL (31-36); Mean Corpuscular Volume 85.1 fL (80-97); Mean Platelet Volume 11.2 fL (7.5-11.2); Nucleated Red Blood Cells % 0.1 %/100WBC (0.0-0.8); Platelet Count 152 10^3/uL (150-450); Red Blood Count 4.36 10^6/uL (3.63-4.92); Red Cell Distribution Width 16.9 % (12-17)
[2023-11-13 04:51] LABS: Albumin 2.6 g/dL (3.2-5.2); Albumin/Globulin Ratio 0.7 (1-3); Calcium 8.8 mg/dL (8.6-10.3); Creatinine, Serum 2.54 mg/dL (0.51-0.95); Globulin 3.5 g/dL (2-4); Magnesium 1.9 mg/dL (1.9-2.7); Total Bilirubin 0.9 mg/dL (0.2-1.0); Total Protein 6.1 g/dL (6.4-8.9); Vancomycin Random 15.7 mcg/mL; eGFR CKD-EPI 20.1 (>60)
[2023-11-13] MEDS: Vancomycin Random Level NOTE FOLLOW UP ONE (05:12)
[2023-11-13] MEDS: Magnesium Sulfate 2 gm BAG 2 GM/50 ML BAG IVPB ONE (07:57)
[2023-11-13 14:56] LABS: Calcium 8.9 mg/dL (8.6-10.3); Creatinine, Serum 2.38 mg/dL (0.51-0.95); Magnesium 2.1 mg/dL (1.9-2.7); eGFR CKD-EPI 21.7 (>60)
[2023-11-13 15:08] LABS: TSH Ultra Thyroid Stim Horm 1.88 mcIU/mL (0.34-5.60)
[2023-11-13 15:10] LABS: Free T4 1.27 ng/dL (0.61-1.12)
[2023-11-13] MEDS: Midazolam 2 mg/2 ml VIAL 1 mg/ml 2 ml VIAL (2 mg) IV SLOW PU PRN (22:14)
[2023-11-14 01:33] LABS: Creatinine, Serum 2.39 mg/dL (0.51-0.95); Potassium 3.6 mmol/L (3.5-5.0); eGFR CKD-EPI 21.6 (>60)
[2023-11-14 05:33] LABS: ABS Lymphocytes 0.8 10^3/uL (1.0-4.8); ABS Monocytes 0.8 10^3/uL (0.0-0.9); ABS Neutrophils 5.6 10^3/uL (1.5-7.6); Eosinophil % 0.2 %; Hematocrit 36.8 % (35-45); Hemoglobin 11.8 g/dL (11.5-14.3); Lymphocyte % 11.5 %; Mean Corpuscular Hemoglobin 27.4 pg (27-33); Mean Corpuscular Hgb Conc 32.1 g/dL (31-36); Mean Corpuscular Volume 85.3 fL (80-97); Mean Platelet Volume 11.7 fL (7.5-11.2); Nucleated Red Blood Cells % 0.1 %/100WBC (0.0-0.8); Platelet Count 160 10^3/uL (150-450); Red Blood Count 4.32 10^6/uL (3.63-4.92); Red Cell Distribution Width 16.7 % (12-17); White Blood Count 7.3 10^3/uL (3.8-11.8)
[2023-11-14 05:43] LABS: ALT 19 U/L (7-52); Albumin 2.6 g/dL (3.2-5.2); Albumin/Globulin Ratio 0.7 (1-3); Alkaline Phosphatase 72 U/L (35-149); Anion Gap 8 mmol/L (2-16); Blood Urea Nitrogen 65 mg/dL (6-24); CO2 Carbon Dioxide 37 mmol/L (22-32); Calcium 8.8 mg/dL (8.6-10.3); Chloride 99 mmol/L (101-111); Creatinine, Serum 2.31 mg/dL (0.51-0.95); Globulin 3.6 g/dL (2-4); Glucose 104 mg/dL (70-100); Sodium 144 mmol/L (135-145); Total Bilirubin 0.8 mg/dL (0.2-1.0); Total Protein 6.2 g/dL (6.4-8.9); eGFR CKD-EPI 22.5 (>60)
[2023-11-14] MEDS: KCL 20 MEQ/100 ML IVPREMIX 20 MEQ/100 ML BAG IV SCH (09:23)
[2023-11-14 09:40] LABS: Potassium Redraw 3.4 mmol/L (3.5-5.0)
[2023-11-14] MEDS: Potassium Chloride LIQUID 20 MEQ/15 ML LIQUID PO ONE (12:01)
[2023-11-14 17:34] LABS: Calcium 8.8 mg/dL (8.6-10.3); Creatinine, Serum 2.31 mg/dL (0.51-0.95); Potassium 4.2 mmol/L (3.5-5.0); eGFR CKD-EPI 22.5 (>60)
[2023-11-15 04:49] LABS: ABS Lymphocytes 0.9 10^3/uL (1.0-4.8); ABS Monocytes 1.2 10^3/uL (0.0-0.9); Eosinophil % 0.3 %; Hematocrit 36.1 % (35-45); Hemoglobin 11.4 g/dL (11.5-14.3); Lymphocyte % 10.1 %; Mean Corpuscular Hgb Conc 31.6 g/dL (31-36); Mean Corpuscular Volume 85.3 fL (80-97); Mean Platelet Volume 11.7 fL (7.5-11.2); Platelet Count 145 10^3/uL (150-450); Red Blood Count 4.23 10^6/uL (3.63-4.92); Red Cell Distribution Width 16.6 % (12-17); White Blood Count 9.2 10^3/uL (3.8-11.8)
[2023-11-15] MEDS: Levothyroxine 100 MCG/5 ML VIAL IV SCH (05:10)
[2023-11-15 05:33] LABS: Albumin 2.8 g/dL (3.2-5.2); Albumin/Globulin Ratio 0.8 (1-3); Creatinine, Serum 2.12 mg/dL (0.51-0.95); Globulin 3.6 g/dL (2-4); Magnesium 1.8 mg/dL (1.9-2.7); Potassium 3.8 mmol/L (3.5-5.0); Total Bilirubin 0.8 mg/dL (0.2-1.0); Total Protein 6.4 g/dL (6.4-8.9); eGFR CKD-EPI 24.9 (>60)
[2023-11-15] MEDS: Magnesium Sulfate 2 gm BAG 2 GM/50 ML BAG IVPB ONE (09:51)
[2023-11-15] MEDS: Potassium Chloride LIQUID 20 MEQ/15 ML LIQUID PO ONE ×2 (09:54→18:57)
[2023-11-15] MEDS: Polyethylene Glycol 3350 17 GM PACKET PO SCH (10:09)
[2023-11-15] MEDS: Furosemide 100 mg/10 ml IV 100 MG in NS 0.9% 100 ml BAG 90 ML IV SCH (15:36)
[2023-11-15 17:50] LABS: Calcium 9.3 mg/dL (8.6-10.3); Creatinine, Serum 2.13 mg/dL (0.51-0.95); Potassium 3.7 mmol/L (3.5-5.0); eGFR CKD-EPI 24.8 (>60)
[2023-11-15 19:28] LABS: C Reactive Protein 25.09 mg/L (<8.01)
[2023-11-16 05:34] LABS: Hematocrit 35.2 % (35-45); Hemoglobin 11.4 g/dL (11.5-14.3); Mean Corpuscular Hemoglobin 27.5 pg (27-33); Mean Corpuscular Hgb Conc 32.4 g/dL (31-36); Mean Corpuscular Volume 84.9 fL (80-97); Platelet Count 108 10^3/uL (150-450); Red Blood Count 4.15 10^6/uL (3.63-4.92); White Blood Count 10.5 10^3/uL (3.8-11.8)
[2023-11-16 05:38] LABS: ABS Basophils 0.1 10^3/uL (0.0-0.1); ABS Eosinophils 0.1 10^3/uL (0.0-0.5); ABS Lymphocytes 0.6 10^3/uL (1.0-4.8); ABS Monocytes 1.6 10^3/uL (0.0-0.9); ABS Neutrophils 8.1 10^3/uL (1.5-7.6); ABS Nucleated RBC 0.01 10^3/ul; Eosinophil % 0.5 %; Lymphocyte % 6.1 %
[2023-11-16 06:38] LABS: Albumin 2.8 g/dL (3.2-5.2); Albumin/Globulin Ratio 0.7 (1-3); Calcium 9.1 mg/dL (8.6-10.3); Creatinine, Serum 1.97 mg/dL (0.51-0.95); Globulin 3.8 g/dL (2-4); Magnesium 1.8 mg/dL (1.9-2.7); Potassium 3.6 mmol/L (3.5-5.0); Total Protein 6.6 g/dL (6.4-8.9); eGFR CKD-EPI 27.2 (>60)
[2023-11-16] MEDS: Magnesium Sulfate 2 gm BAG 2 GM/50 ML BAG IVPB ONE (08:32)
[2023-11-17 05:04] LABS: ABS Basophils 0.1 10^3/uL (0.0-0.1); ABS Eosinophils 0.1 10^3/uL (0.0-0.5); ABS Lymphocytes 0.6 10^3/uL (1.0-4.8); ABS Monocytes 1.2 10^3/uL (0.0-0.9); ABS Neutrophils 6.4 10^3/uL (1.5-7.6); ABS Nucleated RBC 0.01 10^3/ul; Eosinophil % 1.1 %; Hematocrit 36.2 % (35-45); Hemoglobin 11.5 g/dL (11.5-14.3); Lymphocyte % 7.3 %; Mean Corpuscular Hgb Conc 31.7 g/dL (31-36); Nucleated Red Blood Cells % 0.1 %/100WBC (0.0-0.8); Platelet Count 88 10^3/uL (150-450); Red Blood Count 4.25 10^6/uL (3.63-4.92); Red Cell Distribution Width 16.9 % (12-17); White Blood Count 8.4 10^3/uL (3.8-11.8)
[2023-11-17 05:34] LABS: Albumin 2.8 g/dL (3.2-5.2); Albumin/Globulin Ratio 0.7 (1-3); Calcium 8.7 mg/dL (8.6-10.3); Creatinine, Serum 1.79 mg/dL (0.51-0.95); Globulin 3.8 g/dL (2-4); Magnesium 2.1 mg/dL (1.9-2.7); Potassium 3.7 mmol/L (3.5-5.0); Total Protein 6.6 g/dL (6.4-8.9); eGFR CKD-EPI 30.5 (>60)
[2023-11-17] MEDS: Potassium Chloride LIQUID 20 MEQ/15 ML LIQUID PO ONE (08:34)
[2023-11-17] MEDS: Furosemide 40 mg/4 ml IV VIAL IV ONE (08:34)
[2023-11-17] MEDS: KCL 10 MEQ/50 ML IVPREMIX 10 MEQ/50 ML BAG IV ONE (08:35)
[2023-11-17] MEDS: Midazolam 10 mg/10 ml VIAL 1 mg/ml 10 ml VIAL (10 mg) IV SLOW PU ONE (13:52)
[2023-11-17] MEDS: Acetylcysteine INH SOL (RT) 200 MG/ML 4 ML VIAL INH ONE (14:30)
[2023-11-17] MEDS: Acetylcysteine INHALATION SOL 200 MG/ML NEB.SOLN 10 ML INH ONE (14:31)
[2023-11-17 20:33] LABS: Calcium 8.4 mg/dL (8.6-10.3); Creatinine, Serum 1.73 mg/dL (0.51-0.95); Potassium 3.9 mmol/L (3.5-5.0); eGFR CKD-EPI 31.8 (>60)
[2023-11-18 04:40] LABS: Hematocrit 34.7 % (35-45); Hemoglobin 11.1 g/dL (11.5-14.3); Mean Corpuscular Hemoglobin 27.5 pg (27-33); Mean Corpuscular Hgb Conc 32.1 g/dL (31-36); Mean Corpuscular Volume 85.6 fL (80-97); Red Blood Count 4.06 10^6/uL (3.63-4.92); Red Cell Distribution Width 16.9 % (12-17); White Blood Count 7.4 10^3/uL (3.8-11.8)
[2023-11-18 05:18] LABS: ALT 12 U/L (7-52); AST 16 U/L (13-39); Albumin 2.6 g/dL (3.2-5.2); Albumin/Globulin Ratio 0.8 (1-3); Alkaline Phosphatase 66 U/L (35-149); Blood Urea Nitrogen 50 mg/dL (6-24); CO2 Carbon Dioxide > 45 mmol/L (22-32); Calcium 8.4 mg/dL (8.6-10.3); Chloride 94 mmol/L (101-111); Creatinine, Serum 1.68 mg/dL (0.51-0.95); Globulin 3.4 g/dL (2-4); Glucose 104 mg/dL (70-100); Sodium 150 mmol/L (135-145); Total Bilirubin 1.2 mg/dL (0.2-1.0); eGFR CKD-EPI 32.9 (>60)
[2023-11-18 05:25] LABS: ABS Basophils 0.1 10^3/uL (0.0-0.1); ABS Eosinophils 0.2 10^3/uL (0.0-0.5); ABS Lymphocytes 0.9 10^3/uL (1.0-4.8); ABS Monocytes 1.3 10^3/uL (0.0-0.9); ABS Neutrophils 4.9 10^3/uL (1.5-7.6); Eosinophil % 2.4 %; Large Platelets Present; Lymphocyte % 12.7 %; Mean Platelet Volume 12.2 fL (7.5-11.2); Platelet Count 75 10^3/uL (150-450)
[2023-11-19 04:59] LABS: INR 1.29 (0.85-1.14)
[2023-11-19 05:14] LABS: ABS Eosinophils 0.2 10^3/uL (0.0-0.5); ABS Monocytes 0.9 10^3/uL (0.0-0.9); ABS Neutrophils 2.9 10^3/uL (1.5-7.6); Eosinophil % 3.9 %; Hematocrit 32.1 % (35-45); Hemoglobin 10.3 g/dL (11.5-14.3); Lymphocyte % 19.4 %; Mean Corpuscular Hemoglobin 27.6 pg (27-33); Mean Corpuscular Hgb Conc 32.2 g/dL (31-36); Mean Corpuscular Volume 85.7 fL (80-97); Nucleated Red Blood Cells % 0.1 %/100WBC (0.0-0.8); Platelet Count 67 10^3/uL (150-450); Red Blood Count 3.74 10^6/uL (3.63-4.92); Red Cell Distribution Width 16.7 % (12-17); White Blood Count 5.1 10^3/uL (3.8-11.8)
[2023-11-19 05:39] LABS: Calcium 8.3 mg/dL (8.6-10.3); Creatinine, Serum 1.55 mg/dL (0.51-0.95); Potassium 3.9 mmol/L (3.5-5.0); eGFR CKD-EPI 36.3 (>60)
[2023-11-19] MEDS ORDERED: Propofol 10 MG/ML 20 ML BTL ONE (08:38)
[2023-11-19] MEDS ORDERED: Lidocaine 2% PF 5 ML VIAL ONE (08:38)
[2023-11-19] MEDS ORDERED: fentaNYL 250 mcg/5 ml 50 MCG/ML 5 ml VIAL (250 MCG) ONE (08:39)
[2023-11-19] MEDS ORDERED: Rocuronium 50 mg VIAL 10 mg/ml 5 ml VIAL (50 mg) ONE ×2 (08:39→12:23)
[2023-11-19] MEDS ORDERED: Midazolam 5 mg/5 ml VIAL 1 mg/ml 5 ml VIAL (5 mg) ONE (08:47)
[2023-11-19] MEDS ORDERED: Lidocaine 1% w EPI 1:200,000 SDV 30 ML VIAL ONE (08:52)
[2023-11-19] MEDS ORDERED: Lidocaine 1% w EPI 1:100,000 MDV 20 ML VIAL ONE (08:52)
[2023-11-19] MEDS ORDERED: Phenylephrine IV 10 MG/ML 1 ml VIAL ONE (11:27)
[2023-11-19] MEDS ORDERED: Phenylephrine 40 mcg/mL 10mL (400mcg) SYRINGE ONE (12:46)
[2023-11-19] MEDS: Norepinephrine 4 MG/250mL D5W 4,000 MCG/250 ML BAG IV SCH (13:15)
[2023-11-19] MEDS: Propofol 10 mg/ml 100 ML BTL 1,000 MG/100 ML BTL IV SCH ×2 (13:15→17:34)
[2023-11-19] MEDS: Propofol 10 mg/ml 100 ML BTL 1,000 MG/100 ML BTL ONE (17:35)
[2023-11-19] MEDS: Norepinephrine 4 MG/250mL D5W 4,000 MCG/250 ML BAG IV ONE (17:38)
[2023-11-19 18:04] LABS: Resp Rate 22
[2023-11-19 18:09] LABS: PCO2 Arterial 44 mmHg (35-45); PO2 Arterial 69 mmHg (80-100)
[2023-11-19 18:18] LABS: Large Platelets Present; Mean Platelet Volume 12.4 fL (7.5-11.2); Platelet Count 87 10^3/uL (150-450)
[2023-11-20 04:51] LABS: Calcium 8.3 mg/dL (8.6-10.3); Creatinine, Serum 1.55 mg/dL (0.51-0.95); Magnesium 1.9 mg/dL (1.9-2.7); Potassium 4.1 mmol/L (3.5-5.0); eGFR CKD-EPI 36.3 (>60)
[2023-11-20 05:27] LABS: ABS Eosinophils 0.3 10^3/uL (0.0-0.5); ABS Lymphocytes 1.1 10^3/uL (1.0-4.8); ABS Monocytes 1.6 10^3/uL (0.0-0.9); ABS Neutrophils 3.8 10^3/uL (1.5-7.6); Eosinophil % 3.8 %; Hematocrit 36.5 % (35-45); Hemoglobin 11.5 g/dL (11.5-14.3); Lymphocyte % 16.2 %; Mean Corpuscular Hemoglobin 26.7 pg (27-33); Mean Corpuscular Hgb Conc 31.5 g/dL (31-36); Mean Corpuscular Volume 84.9 fL (80-97); Mean Platelet Volume 12.4 fL (7.5-11.2); Nucleated Red Blood Cells % 0.1 %/100WBC (0.0-0.8); Platelet Count 99 10^3/uL (150-450); Red Cell Distribution Width 16.8 % (12-17); White Blood Count 6.8 10^3/uL (3.8-11.8)
[2023-11-20] MEDS ORDERED: Zosyn per Pharmacy NOTE FOLLOW UP SCH (09:00)
[2023-11-20 09:39] LABS: Resp Rate 24
[2023-11-20] MEDS: Argatroban 250 MG in NS 0.9% 250 ml 247.5 ML IV SCH (09:41)
[2023-11-20] MEDS: ZOSYN 3.375 GM x ONE DOSE over 30 miuntes IV (09:44)
[2023-11-20 09:45] LABS: PCO2 Arterial 47 mmHg (35-45); PO2 Arterial 77 mmHg (80-100)
[2023-11-20] MEDS: Furosemide 40 mg/4 ml IV VIAL IV SLOW PU ONE ×2 (09:54→17:34)
[2023-11-20 10:00] LABS: Activated Partial Thrombo Time 32.8 seconds (26.0-38.0); INR 1.34 (0.85-1.14)
[2023-11-20 10:34] LABS: Albumin 2.6 g/dL (3.2-5.2); Albumin/Globulin Ratio 0.7 (1-3); Direct Bilirubin 0.7 mg/dL (0.03-0.18); Globulin 3.6 g/dL (2-4); Indirect Bilirubin 0.8 mg/dL (0.3-1.0); Total Bilirubin 1.5 mg/dL (0.2-1.0); Total Protein 6.2 g/dL (6.4-8.9)
[2023-11-20] MEDS: Sodium Chloride FLUSH 10 ml SYRINGE IV FLUSH SCH (12:10)
[2023-11-20] MEDS: ZOSYN 3.375 GM Q8H per EXTENDED INFUSION IV SCH (15:01)
[2023-11-20] MEDS ORDERED: Saline FLUSH-CENTRAL 10 ML SYRINGE CENT\\PICC SCH (18:00)
[2023-11-20 21:31] LABS: HIT ELISA < 0.050 OD (<0.400); Heparin PF4 Antibody Interp Negative (Negative)
[2023-11-21 04:11] LABS: ABS Eosinophils 0.2 10^3/uL (0.0-0.5); ABS Lymphocytes 1.1 10^3/uL (1.0-4.8); ABS Neutrophils 2.5 10^3/uL (1.5-7.6); ABS Nucleated RBC 0.01 10^3/ul; Eosinophil % 3.4 %; Hematocrit 31.8 % (35-45); Hemoglobin 10.3 g/dL (11.5-14.3); Lymphocyte % 22.9 %; Mean Corpuscular Hemoglobin 27.6 pg (27-33); Mean Corpuscular Hgb Conc 32.5 g/dL (31-36); Mean Corpuscular Volume 84.9 fL (80-97); Mean Platelet Volume 12.9 fL (7.5-11.2); Nucleated Red Blood Cells % 0.1 %/100WBC (0.0-0.8); Platelet Count 76 10^3/uL (150-450); Red Blood Count 3.75 10^6/uL (3.63-4.92); Red Cell Distribution Width 16.4 % (12-17); White Blood Count 4.8 10^3/uL (3.8-11.8)
[2023-11-21 04:32] LABS: Activated Partial Thrombo Time 78.7 seconds (26.0-38.0); INR 3.07 (0.85-1.14)
[2023-11-21 04:44] LABS: Large Platelets Present
[2023-11-21 05:16] LABS: Calcium 7.7 mg/dL (8.6-10.3); Creatinine, Serum 1.75 mg/dL (0.51-0.95); Magnesium 1.8 mg/dL (1.9-2.7); Potassium 3.8 mmol/L (3.5-5.0); eGFR CKD-EPI 31.4 (>60)
[2023-11-21] MEDS: Furosemide 40 mg/4 ml IV VIAL IV ONE (11:58)
[2023-11-22] MEDS ORDERED: Polyethylene Glycol 3350 17 GM PACKET PO PRN (04:26)
[2023-11-22 04:56] LABS: Hematocrit 32.3 % (35-45); Hemoglobin 10.4 g/dL (11.5-14.3); Mean Corpuscular Hemoglobin 27.2 pg (27-33); Mean Corpuscular Hgb Conc 32.2 g/dL (31-36); Mean Corpuscular Volume 84.3 fL (80-97); Red Blood Count 3.83 10^6/uL (3.63-4.92); Red Cell Distribution Width 16.2 % (12-17); White Blood Count 5.1 10^3/uL (3.8-11.8)
[2023-11-22 04:59] LABS: Activated Partial Thrombo Time 81.1 seconds (26.0-38.0); INR 3.21 (0.85-1.14)
[2023-11-22 06:16] LABS: ABS Eosinophils 0.2 10^3/uL (0.0-0.5); ABS Neutrophils 2.8 10^3/uL (1.5-7.6); Eosinophil % 4.8 %; Large Platelets Present; Lymphocyte % 20.3 %; Nucleated Red Blood Cells % 0.1 %/100WBC (0.0-0.8); Platelet Count 80 10^3/uL (150-450)
[2023-11-22 06:40] LABS: Calcium 7.9 mg/dL (8.6-10.3); Creatinine, Serum 1.8 mg/dL (0.51-0.95); Magnesium 1.8 mg/dL (1.9-2.7); Potassium 3.4 mmol/L (3.5-5.0); eGFR CKD-EPI 30.3 (>60)
[2023-11-22] MEDS: KCL 20 MEQ/100 ML IVPREMIX 20 MEQ/100 ML BAG IV SCH (09:51)
[2023-11-22] MEDS: Midazolam 2 mg/2 ml VIAL 1 mg/ml 2 ml VIAL (2 mg) IV SLOW PU ONE (10:22)
[2023-11-22] MEDS: Midazolam 5 mg/5 ml VIAL 1 mg/ml 5 ml VIAL (5 mg) ONE (10:26)
[2023-11-22] MEDS: Phenylephrine 40 mcg/mL 10mL (400mcg) SYRINGE IV PUSH ONE ×2 (10:28→10:39)
[2023-11-22] MEDS: Norepinephrine 4 MG/250mL D5W 4,000 MCG/250 ML BAG IV ONE (10:59)
[2023-11-22] MEDS: Phenylephrine 40 mcg/mL 10mL (400mcg) SYRINGE ONE (12:19)
[2023-11-22] MEDS: Phytonadione IV (Adult) 10 MG in NS 0.9% 50 ML 50 ML IV ONE (15:05)
[2023-11-22] MEDS: Heparin 5000 UNITS/ML 1 mL VIAL IV PRN (15:09)
[2023-11-22] MEDS: Heparin DRIP 25,000 UNITS BAG 25,000 UNITS/250 ML BAG IV SCH (15:11)
[2023-11-22] MEDS: Furosemide 40 mg/4 ml IV VIAL IV ONE (15:46)
[2023-11-23 04:54] LABS: INR 1.47 (0.85-1.14)
[2023-11-23 04:57] LABS: ABS Eosinophils 0.2 10^3/uL (0.0-0.5); ABS Lymphocytes 0.9 10^3/uL (1.0-4.8); ABS Monocytes 0.8 10^3/uL (0.0-0.9); ABS Neutrophils 2.6 10^3/uL (1.5-7.6); Eosinophil % 4.3 %; Hematocrit 33.9 % (35-45); Hemoglobin 10.9 g/dL (11.5-14.3); Lymphocyte % 19.4 %; Mean Corpuscular Hemoglobin 27.1 pg (27-33); Mean Corpuscular Hgb Conc 32.1 g/dL (31-36); Mean Corpuscular Volume 84.5 fL (80-97); Mean Platelet Volume 12.6 fL (7.5-11.2); Platelet Count 91 10^3/uL (150-450); Red Blood Count 4.01 10^6/uL (3.63-4.92); Red Cell Distribution Width 16.4 % (12-17); White Blood Count 4.6 10^3/uL (3.8-11.8)
[2023-11-23 05:37] LABS: Calcium 8.1 mg/dL (8.6-10.3); Creatinine, Serum 1.74 mg/dL (0.51-0.95); Potassium 3.3 mmol/L (3.5-5.0); eGFR CKD-EPI 31.6 (>60)
[2023-11-23] MEDS: KCL 20 MEQ/100 ML IVPREMIX 20 MEQ/100 ML BAG IV SCH (07:49)
[2023-11-23 07:53] LABS: Magnesium 1.8 mg/dL (1.9-2.7); Phosphorus 2.9 mg/dL (2.5-5.0)
[2023-11-23] MEDS ORDERED: Senna TAB 8.6 mg TAB NG TUBE PRN (08:42)
[2023-11-23] MEDS: Magnesium Sulfate 2 gm BAG 2 GM/50 ML BAG IVPB ONE (11:12)
[2023-11-23] MEDS: SULFAMETHOXAZOLE IVPB SCH (18:15)
[2023-11-23] MEDS: D5W IVPB SCH (18:15)
[2023-11-23] MEDS: TRIMETH IVPB SCH (18:15)
[2023-11-23] MEDS: Heparin DRIP 25,000 UNITS BAG 25,000 UNITS/250 ML BAG IV SCH (19:17)
[2023-11-24 01:47] LABS: Hematocrit 31.7 % (35-45); Hemoglobin 10.3 g/dL (11.5-14.3)
[2023-11-24] MEDS: Heparin 5000 UNITS/ML 1 mL VIAL IV SCH (02:09)
[2023-11-24 05:10] LABS: Calcium 7.9 mg/dL (8.6-10.3); Creatinine, Serum 1.86 mg/dL (0.51-0.95); Potassium 3.2 mmol/L (3.5-5.0); eGFR CKD-EPI 29.1 (>60)
[2023-11-24 05:17] LABS: ABS Eosinophils 0.3 10^3/uL (0.0-0.5); ABS Lymphocytes 1.9 10^3/uL (1.0-4.8); ABS Monocytes 0.7 10^3/uL (0.0-0.9); ABS Neutrophils 2.1 10^3/uL (1.5-7.6); Eosinophil % 5.4 %; Hematocrit 31.4 % (35-45); Lymphocyte % 37.9 %; Mean Corpuscular Hemoglobin 27.3 pg (27-33); Mean Corpuscular Hgb Conc 31.9 g/dL (31-36); Mean Corpuscular Volume 85.4 fL (80-97); Platelet Count 95 10^3/uL (150-450); Red Blood Count 3.68 10^6/uL (3.63-4.92); Red Cell Distribution Width 16.7 % (12-17); White Blood Count 5.1 10^3/uL (3.8-11.8)
[2023-11-24] MEDS: KCL 20 MEQ/100 ML IVPREMIX 20 MEQ/100 ML BAG IV SCH (06:02)
[2023-11-24] MEDS: Nystatin TOP POWDER 15 GM BTL TOPICAL SCH (07:56)
[2023-11-24] MEDS: fentaNYL PATCH 25 MCG/HR 1 PATCH TRANSDERM SCH (10:35)
[2023-11-24] MEDS: fentaNYL PATCH 25 MCG/HR 1 PATCH ONE (11:42)
[2023-11-24] MEDS: fentaNYL Patch Check Q Shift NOTE FOLLOW UP SCH (18:55)
[2023-11-24] MEDS: fentaNYL PATCH 50 MCG/HR 1 PATCH TRANSDERM SCH (19:41)
[2023-11-25 05:10] LABS: ABS Basophils 0.1 10^3/uL (0.0-0.1); ABS Eosinophils 0.3 10^3/uL (0.0-0.5); ABS Lymphocytes 1.5 10^3/uL (1.0-4.8); ABS Monocytes 0.7 10^3/uL (0.0-0.9); ABS Neutrophils 1.8 10^3/uL (1.5-7.6); Eosinophil % 6.4 %; Hemoglobin 10.1 g/dL (11.5-14.3); Mean Corpuscular Hgb Conc 31.6 g/dL (31-36); Mean Corpuscular Volume 85.5 fL (80-97); Mean Platelet Volume 11.7 fL (7.5-11.2); Nucleated Red Blood Cells % 0.1 %/100WBC (0.0-0.8); Platelet Count 84 10^3/uL (150-450); Red Blood Count 3.75 10^6/uL (3.63-4.92); Red Cell Distribution Width 16.7 % (12-17); White Blood Count 4.4 10^3/uL (3.8-11.8)
[2023-11-25 05:36] LABS: Calcium 7.6 mg/dL (8.6-10.3); Creatinine, Serum 1.8 mg/dL (0.51-0.95); Magnesium 1.9 mg/dL (1.9-2.7); Potassium 3.5 mmol/L (3.5-5.0); eGFR CKD-EPI 30.3 (>60)
[2023-11-25] MEDS: Potassium Chloride LIQUID 20 MEQ/15 ML LIQUID PO ONE (08:23)
[2023-11-25] MEDS: Ondansetron 4 mg VIAL 2 MG/ML 2 ml VIAL IV PRN (08:48)
[2023-11-25] MEDS: Ondansetron 4 mg VIAL 2 MG/ML 2 ml VIAL ONE (09:11)
[2023-11-26 05:14] LABS: ABS Eosinophils 0.2 10^3/uL (0.0-0.5); ABS Lymphocytes 1.1 10^3/uL (1.0-4.8); ABS Monocytes 0.5 10^3/uL (0.0-0.9); ABS Neutrophils 1.5 10^3/uL (1.5-7.6); ABS Nucleated RBC 0.01 10^3/ul; Eosinophil % 5.8 %; Hemoglobin 7.9 g/dL (11.5-14.3); Mean Corpuscular Hemoglobin 28.2 pg (27-33); Mean Corpuscular Hgb Conc 30.3 g/dL (31-36); Mean Corpuscular Volume 92.9 fL (80-97); Mean Platelet Volume 13.7 fL (7.5-11.2); Nucleated Red Blood Cells % 0.3 %/100WBC (0.0-0.8); Platelet Count 58 10^3/uL (150-450); Red Cell Distribution Width 18.5 % (12-17); White Blood Count 3.3 10^3/uL (3.8-11.8)
[2023-11-26 05:45] LABS: Calcium 6.1 mg/dL (8.6-10.3); Creatinine, Serum 1.5 mg/dL (0.51-0.95); Potassium 3.1 mmol/L (3.5-5.0); eGFR CKD-EPI 37.7 (>60)
[2023-11-26 06:26] LABS: ABS Eosinophils 0.3 10^3/uL (0.0-0.5); ABS Lymphocytes 1.4 10^3/uL (1.0-4.8); ABS Monocytes 0.6 10^3/uL (0.0-0.9); ABS Neutrophils 1.9 10^3/uL (1.5-7.6); Eosinophil % 6.6 %; Hematocrit 29.6 % (35-45); Hemoglobin 9.6 g/dL (11.5-14.3); Lymphocyte % 33.1 %; Mean Corpuscular Hemoglobin 27.5 pg (27-33); Mean Corpuscular Hgb Conc 32.4 g/dL (31-36); Mean Corpuscular Volume 84.9 fL (80-97); Mean Platelet Volume 12.6 fL (7.5-11.2); Nucleated Red Blood Cells % 0.1 %/100WBC (0.0-0.8); Platelet Count 77 10^3/uL (150-450); Red Blood Count 3.49 10^6/uL (3.63-4.92); Red Cell Distribution Width 17.1 % (12-17); White Blood Count 4.2 10^3/uL (3.8-11.8)
[2023-11-26 07:04] LABS: Calcium 7.4 mg/dL (8.6-10.3); Creatinine, Serum 1.72 mg/dL (0.51-0.95); Potassium 3.9 mmol/L (3.5-5.0)
[2023-11-26] MEDS: Sulfamethox/Trimethoprim DS TAB 800/160 mg PO SCH (17:59)
[2023-11-27 05:29] LABS: Calcium 7.8 mg/dL (8.6-10.3); Creatinine, Serum 1.69 mg/dL (0.51-0.95); Magnesium 1.9 mg/dL (1.9-2.7); Potassium 4.3 mmol/L (3.5-5.0); eGFR CKD-EPI 32.7 (>60)
[2023-11-27 05:39] LABS: ABS Eosinophils 0.2 10^3/uL (0.0-0.5); ABS Lymphocytes 1.1 10^3/uL (1.0-4.8); ABS Monocytes 0.6 10^3/uL (0.0-0.9); ABS Neutrophils 2.3 10^3/uL (1.5-7.6); ABS Nucleated RBC 0.01 10^3/ul; Hematocrit 31.4 % (35-45); Lymphocyte % 26.6 %; Mean Corpuscular Hemoglobin 27.2 pg (27-33); Mean Corpuscular Hgb Conc 31.9 g/dL (31-36); Mean Corpuscular Volume 85.2 fL (80-97); Mean Platelet Volume 12.5 fL (7.5-11.2); Nucleated Red Blood Cells % 0.2 %/100WBC (0.0-0.8); Platelet Count 68 10^3/uL (150-450); Red Blood Count 3.68 10^6/uL (3.63-4.92); Red Cell Distribution Width 17.1 % (12-17); White Blood Count 4.2 10^3/uL (3.8-11.8)
[2023-11-27] MEDS: Magnesium Sulfate 2 gm BAG 2 GM/50 ML BAG IVPB ONE (07:40)
[2023-11-27] MEDS ORDERED: Warfarin per PHARMACY **NOTE FOLLOW UP SCH (09:00)
[2023-11-27 09:31] LABS: TSH Ultra Thyroid Stim Horm 6.85 mcIU/mL (0.34-5.60)
[2023-11-27 14:04] VITALS: BP 103/75
== END 2023-11-27 14:47 | DRG 3 ==
LOC: ED 22:30 → EDHOLD 23:54 → ICU 11-02 00:25 → MEDTELE 11-09 09:50 → ICU 11-10 15:06
PROVIDERS: ADMIT Student in an Organized Health Care Education/Training Program; ATTEND Student in an Organized Health Care Education/Training Program